=== PATIENT | male | born 1965 | race Caucasian/White ===

== ENCOUNTER 2017-04-04 10:59 | Day surgery (SDC) | payer MEDICARE ==
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
[~2017-04-04 10:59] MED LIST: BRIDION 200MG/2ML IV ONE; DIPRIVAN 200 MG/20 ML IV ONE; KEFZOL 1 GM ONE; Lactated Ringers 1,000 ML IV ONE; Quelicin Fliptop 200 MG/10 ML IV ONE; SUBLIMAZE 250 MCG/5 ML IV ONE; Sensorcaine 0.25% 10 ML ONE; Zemuron 100 MG/10 ML IV ONE
[2017-04-04] MEDS ORDERED: CEFAZOLIN 2 GM-D5W BAG** 2 GM/50 ML ML IV ONE ×2 (11:11→11:14)
[2017-04-04] MEDS ORDERED: Lactated Ringers 1,000 ML IV ONE (11:14)
[2017-04-04] MEDS ORDERED: Lactated Ringers 1,000 ML IV SCH (11:30)
[2017-04-04] MEDS ORDERED: KEFZOL 1 GM ONE (15:55)
[2017-04-04] MEDS ORDERED: SUBLIMAZE 100 MCG/2 ML ONE (16:33)
[2017-04-04 17:22] VITALS: BP 97/73; PULSE 81; O2SAT 97
--- NOTE | 2017-04-05 07:44 | OP ---
SURGERY DATE/TIME: 04/04/2017 1537 PREOPERATIVE DIAGNOSIS: Ventral abdominal hernia. POSTOPERATIVE DIAGNOSIS: Ventral hernia. PROCEDURE: Ventral herniorrhaphy with mesh. SURGEON: Keagan Flores M.D. ANESTHESIA: General. COMPLICATIONS: None. CONDITION: Stable. INDICATION: A patient with symptomatic ventral hernia. Marked preoperatively. DESCRIPTION OF PROCEDURE: Taken to surgery. General anesthetic. Routine prep and drape. Time out performed. A midline incision was used. The hernia defect was 3 x 2 cm. He had two small defects above this, one with a portion of fat that was about 6 mm and one with a 6 mm portion of fat that was just about 3 mm. These two were reduced and closed with suture #0 Prolene. The larger was then totally reduced. An edge was developed and a bicomponent absorbable - Prolene mesh was placed, was pulled up and was secured with sutures #0 Prolene. Hemostasis excellent. Repair excellent. Closed with 3-0 Vicryl, 4-0 Vicryl and Steri-Strips. The patient tolerated the procedure satisfactorily.
== END 2017-04-04 17:25 | disposition home or self-care (01) ==
LOC: SDC 10:59
PROVIDERS: ATTEND Surgery
PROC: 0WUF0JZ Supplement Abdominal Wall with Synthetic Substitute, Open Approach (ICD-10-PCS; principal; 2017-04-04)
DX: K43.9 Ventral hernia without obstruction or gangrene (principal)
CPT/HCPCS: 00752; C1781; J0330; J0690; J2704; J3010; L0625

== ENCOUNTER 2024-08-14 09:24 | Emergency (ER) | payer MEDICARE ==
[2024-08-14 10:30] VITALS: BP 111/72; RESP 16; TEMP 97.3
[2024-08-14] MEDS ORDERED: Reglan 10 MG/2 ML ONE (10:44)
[2024-08-14] MEDS: HALDOL PO STA (10:46)
[2024-08-14] MEDS: Reglan 10 MG/2 ML IM ONE (10:47)
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
[2024-08-14 11:23] VITALS: PULSE 87; O2SAT 96
== END 2024-08-14 11:16 | disposition home or self-care (01) ==
LOC: ED 09:24
DX: R06.6 Hiccough (principal); Z79.899 Other long term (current) drug therapy; Z87.820 Personal history of traumatic brain injury
CPT/HCPCS: 96372; 99283; A9270-GY